=== PATIENT | female | born 1985 | race Two or more races ===

== ENCOUNTER 2025-01-08 12:52 | Outpatient (OUT) | payer BC, SELFPAY ==
--- NOTE | 2025-01-08 13:05 | MM_ITS ---
Patient Name: XOCHILT AN MR#: [id number] : 1985 Exam Date: 01/08/2025 Ordering Doctor: Mine Delgado RADIOLOGY REPORT PROCEDURE: MM TOMOSYNTHESIS SCREENING BI COMPARISON: None. INDICATIONS: Screening Calculator Name NCI Breast Cancer Risk Assessment Tool 5 Year Breast Cancer Risk 0.40% Lifetime Breast Cancer Risk 6.30% Personal Breast Cancer No Personal Ovarian Cancer No Treatments None Family Cancers Aunt-paternal with breast cancer at age 35; Grandfather-maternal with stomach cancer at age 60. LOCATION: [facility] BREAST COMPOSITION: The breasts are heterogeneously dense,which may obscure small masses. FINDINGS: RIGHT BREAST: No significant suspicious finding. LEFT BREAST: No significant suspicious finding. k DIAGNOSTIC CATEGORY 1--NEGATIVE. NO CHANGE FROM COMPARISON ASSESSMENT. RECOMMENDATIONS: ROUTINE MAMMOGRAM AND CLINICAL EVALUATION IN 12 MONTHS. PLEASE NOTE: A NORMAL MAMMOGRAM DOES NOT EXCLUDE THE POSSIBILITY OF BREAST CANCER. A CLINICALLY SUSPICIOUS PALPABLE LUMP SHOULD BE BIOPSIED. Dictated by: Ramu Casas MD on 01/08/2025 at 15:57 Approved by: Ramu Casas MD on 01/08/2025 at 16:00
== END 2025-01-08 12:53 | disposition home or self-care (01) ==
LOC: MAMMO 13:00
PROVIDERS: PCP Nurse Practitioner Family; Visit Provider Nurse Practitioner Family
DX: Z12.31 Encounter for screening mammogram for malignant neoplasm of breast (principal); Z80.3 Family history of malignant neoplasm of breast; Z80.0 Family history of malignant neoplasm of digestive organs
CPT/HCPCS: 77063; 77067